=== PATIENT | male | born 1945 | race Caucasian/White ===

== ENCOUNTER 2017-05-07 14:50 | Day surgery (SDC) | payer MEDICARE, OTHER ==
[2017-05-07] MEDS ORDERED: PROPOFOL 20 ML (15:49)
[2017-05-07] MEDS ORDERED: FENTAnyl 50 MCG/ML VIAL (15:49)
== END 2017-05-07 17:40 | disposition home or self-care (01) ==
LOC: GIL 14:50
DX: K29.70 Gastritis, unspecified, without bleeding (principal); K64.8 Other hemorrhoids; I10 Essential (primary) hypertension; E03.9 Hypothyroidism, unspecified; G20 Parkinson's disease
CPT/HCPCS: 43239; 87081; 88305

== ENCOUNTER 2017-12-23 05:36 | Day surgery (SDC) | payer MEDICARE, OTHER ==
[2017-12-23] MEDS: SOD CHLORIDE 0.45% 1,000 ML IV (06:47)
[2017-12-23 06:56] LABS: ADD MAN DIFF? NO
[2017-12-23 07:02] LABS: EOSINOPHILS # 0.1 10^3/ul (0.0-0.5); EOSINOPHILS % 2.3 % (0.0-7.0); HEMATOCRIT 36.8 % (42.0-52.0); HEMOGLOBIN 12.3 g/dl (14.0-18.0); LYMPHOCYTES % 25.7 % (15.0-51.0); MEAN CORPUSCULAR HEMOGLOBIN 32.8 pg (29.0-33.0); MEAN CORPUSCULAR HGB CONC 33.4 g/dl (32.0-37.0); MEAN CORPUSCULAR VOLUME 98.1 fl (82.0-101.0); MEAN PLATELET VOLUME 10.3 fl (7.4-10.4); MONOCYTE # 0.3 10^3/ul (0.3-0.9); MONOCYTES % 7.2 % (0.0-11.0); NEUTROPHIL # 2.5 10^3/ul (1.6-7.5); NEUTROPHILS % 63.5 % (39.0-77.0); PLATELET COUNT 150 10^3/UL (140-415); RED BLOOD COUNT 3.75 10^6/ul (4.70-6.10); RED CELL DISTRIBUTION WIDTH 12.9 % (11.5-14.5)
[2017-12-23 07:02] LABS: WHITE BLOOD COUNT 3.9 10^3/ul (4.8-10.8)
[2017-12-23 07:07] LABS: HOLD TRANSMISSIONS 1
[2017-12-23 07:18] LABS: ANION GAP 13 (8-16); BLOOD UREA NITROGEN 25 mg/dl (7-20); CALCIUM 9.3 mg/dl (8.4-10.2); CARBON DIOXIDE 32 mmol/L (21-31); CHLORIDE 101 mmol/L (97-110); CREATININE 1.12 mg/dl (0.61-1.24); GLUCOSE 71 mg/dl (70-220); POTASSIUM 3.8 mmol/L (3.5-5.1); SODIUM 142 mmol/L (135-144)
[2017-12-23 07:21] LABS: INR 1.71; PROTIME 20.4 Sec (11.9-14.9); PT RATIO 1.6
[2017-12-23] MEDS ORDERED: PROPOFOL 20 ML (07:33)
[2017-12-23] MEDS ORDERED: LIDOCAINE 100 MG SYRINGE (07:33)
[2017-12-23] MEDS ORDERED: ETOMIDATE 20 MG INJ (07:33)
[2017-12-23] MEDS ORDERED: ONDANSETRON 4 MG INJ IV (08:00)
[2017-12-23] MEDS ORDERED: AL HYDROX/MG HYDROX/SIMETH 30 ML CUP PO (08:00)
== END 2017-12-23 12:06 | disposition home or self-care (01) ==
LOC: CCL 05:36 → SDS 05:36 → CCL 12:06
DX: I48.91 Unspecified atrial fibrillation (principal)
CPT/HCPCS: 80048; 85025; 85610; 92960; 93005